=== PATIENT | female | born 1975 | race Two or more races ===

== ENCOUNTER 2019-02-16 15:46 | Emergency (ER) | payer OTHER ==
[~2019-02-16] VITALS: Ht 167.6 cm; Wt 98.0 kg
[~2019-02-16 15:46] MED LIST: PEPCID40 MG PO; ZOFRAN8 MG PO
[2019-02-16] MEDS ORDERED: LYRICA50 MG PO (15:52)
== END 2019-02-16 19:19 | disposition home or self-care (01) ==
LOC: ER 15:46
DX: R10.31 Right lower quadrant pain (principal)